=== PATIENT | male | born 1955 | race Caucasian/White ===

== ENCOUNTER → 2017-04-02 | Outpatient (CLI) | payer BC | LOC: CIMAGING 14:25 | PROVIDERS: ATTEND Family Medicine | DX: Z01.818 Encounter for other preprocedural examination (principal); J40 Bronchitis, not specified as acute or chronic | CPT/HCPCS: 71020-PO ==

== ENCOUNTER 2017-10-20 11:42 | Day surgery (SDC) | payer BC ==
[2017-10-20] MEDS ORDERED: LIDOCAINE 1% 300 MG/30 ML SDV SC ONE (11:59)
--- NOTE | 2017-10-20 13:25 | PDPROPOC ---
Sedation Plan of Care Sedation Plan of Care: mental status noted, patient educated of risks, benefits , alternatives ASA Classification: ASA 3 Planned drugs: other Mallampati Score: Class 3 Mallampati Reference Image: Patient passed 3-3-2 rule?: Yes
--- NOTE | 2017-10-20 13:25 | PDHPUP ---
History & Physical Update H&P update statement: This history and physical update is based on an assessment of the patient which was completed after admission or registration (within 24 hours), but prior to the surgery/procedure. H&P update: H&P reviewed & patient examined, no change in patient's condition since H&P completed
--- NOTE | 2017-10-22 08:55 | EPPROC ---
Electrophysiology Procedure Note: Procedure: LINQ explant Indication: LINQ end of life Procedure: Parts prepared and draped. [place] given. Incision placed. LINQ removed. [place] placed. Steristrips placed. Dry sterile dressing placed. Conclusion: Successful LINQ explant. Patient Problems: Problems Problem Status Onset Supraventricular tachycardia Acute
== END 2017-10-20 14:14 | disposition home or self-care (01) ==
LOC: FCATH 11:42
PROVIDERS: ATTEND Internal Medicine Cardiovascular Disease
PROC: 0JPT02Z Removal of Monitoring Device from Trunk Subcutaneous Tissue and Fascia, Open Approach (ICD-10-PCS; principal; 2017-10-20)
DX: Z45.09 Encounter for adjustment and management of other cardiac device (principal); I47.1 Supraventricular tachycardia; I10 Essential (primary) hypertension; Z96.21 Cochlear implant status